=== PATIENT | female | born 1990 | race Caucasian/White ===

== ENCOUNTER → 2017-07-11 | Outpatient (CLI) | payer OTHER ==
[~2017-07-11] MED LIST: BCPILLS PO
== END | disposition home or self-care (01) ==
LOC: C.PAPS 13:25
PROVIDERS: ATTEND Obstetrics & Gynecology
DX: Z01.419 Encounter for gynecological examination (general) (routine) without abnormal findings (principal)

== ENCOUNTER 2018-01-30 08:38 | Emergency (ER) | payer OTHER ==
[~2018-01-30] VITALS: Ht 154.9 cm; Wt 48.7 kg
[2018-01-30 08:43] VITALS: TEMP 37; Ht 154.9 cm; Wt 48.7 kg
[2018-01-30] MEDS ORDERED: ESCI1TAB10 PO (09:01)
[2018-01-30] MEDS ORDERED: BUPR200T2 PO (09:01)
[2018-01-30] MEDS ORDERED: LIDOCAINE/EPINEPHRINE 1% 20 ML VIAL INFIL STA (09:01)
[2018-01-30] MEDS ORDERED: AMOXICILLIN/CLAVULANATE TAB 875 MG TAB PO STA (09:03)
--- NOTE | 2018-01-30 09:54 | DIAGNOSTIC IMAGING REPORT ---
R FOREARM 2 VIEWS ROUTINE CLINICAL HISTORY: right forearm pain, swelling, bitten by dog COMPARISON: None. DISCUSSION: No fractures or dislocations are visualized. There are no destructive lesions. No radiopaque foreign bodies are visualized. IMPRESSION: 1. No fractures identified 2. No radiopaque foreign bodies are visualized Electronically signed by: Gómez Donaldson M.D. 01/30/2018 9:52 AM Dictated Date/Time: 01/30/2018 9:52 AM
--- NOTE | 2018-01-30 10:05 | EMERGENCY ROOM VISIT NOTE ---
ED Visit Note First contact with patient: 08:50 CHIEF COMPLAINT: Right forearm laceration HISTORY OF PRESENT ILLNESS: This 27-year-old female patient presents to the emergency department, ambulatory, approximately 1 hour after getting bitten by a [place]. 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 She states the dog got scared and bit her in the right arm. She states he did twist the arm as well. The bleeding has not stopped. Denies weakness or numbness of the hand, forearm, or fingers. The patient rates the pain as sharp and 8/10. The patient denies any other injuries. The patient's Tetanus shot is up to date. REVIEW OF SYSTEMS: A 6 system review of systems was completed with positives and pertinent negatives listed in the HPI. ALLERGIES: None MEDICATIONS: Wellbutrin, Lexapro, OCPs PMH: None SOCIAL HISTORY: The patient lives locally with family. She denies drug, alcohol use. She admits to smoking one half pack of cigarettes per day. PHYSICAL EXAM: Vital Signs: Reviewed Nurse's notes, vital signs stable. GENERAL : This is a 27-year-old white female, in no acute distress, well-developed, well -nourished. SKIN: There is a 2 cm long laceration on the posterior aspect of the right forearm. The edges gape apart with traction. There is no foreign material in the wound and it looks clean. There is moderate bleeding. Moderate swelling in the distal to mid aspect of the forearm with significant tenderness on palpation. No deep structures such as tendons, bones, or significant blood vessels are seen in the base of the wound. Normal strength and movement of the elbow and wrist. Capillary refill less than 2 seconds. Normal sensation to light and sharp touch. RADIOLOGY: R FOREARM 2 VIEWS ROUTINE CLINICAL HISTORY: right forearm pain, swelling, bitten by dog COMPARISON: None. DISCUSSION: No fractures or dislocations are visualized. There are no destructive lesions. No radiopaque foreign bodies are visualized. IMPRESSION: 1. No fractures identified 2. No radiopaque foreign bodies are visualized Electronically signed by: Gómez Donaldson M.D. 01/30/2018 9:52 AM Dictated Date/Time: 01/30/2018 9:52 AM EMERGENCY DEPARTMENT COURSE: I examined the patient. X-ray performed and reviewed by myself and radiologist as above. Verbal consent was obtained to perform the procedure. Using sterile technique the wound was cleansed with Betadine. The area was sterilely draped. 4 ml of 1% lidocaine with epinephrine was used to anesthetize the laceration on the right forearm. Once the patient was anesthetized, the wound was copiously irrigated under pressure with sterile saline. The wound was explored and was as described above. The laceration was repaired using one subcuticular 5-0 Vicryl absorbable suture, and 6 simple interrupted 5-0 nylon sutures with the wound edges being well approximated. The patient tolerated the procedure well. Hemostasis was achieved. The area was cleaned with sterile saline and dressed with bacitracin ointment and bandage. The patient was given her first dose of Augmentin while here in the emergency department. The patient was discharged home in good condition. I attest that I have personally reviewed the patient's current medication list. Patient was found to have normal blood pressure on screening and does not require follow-up. DIAGNOSIS: right forearm laceration, dog bite Current/Historical Medications Scheduled Amoxicillin & Pot Clavulanate (Augmentin 875-125 mg), 1 TAB PO BID Control Pills ( Control Pills), 1 TAB PO DAILY Bupropion (Wellbutrin Sr), 200 MG PO DAILY Escitalopram Oxalate (Lexapro), 20 MG PO DAILY Allergies Coded Allergies: No Known Allergies (Unverified , 04/25/10) Vital Signs Date Time Temp Pulse Resp B/P (MAP) Pulse Ox O2 Delivery O2 Flow Rate FiO2 01/30/18 10:51 76 20 105/63 100 01/30/18 08:43 37.0 83 18 113/78 100 Room Air Medications Administered Medications (Trade) Dose Ordered Sig/Madison Route Start Time Stop Time Status Last Admin Dose Admin Lidocaine/ Epinephrine (Xylocaine/Epine 1% Inj) 20 ml NOW STAT INFIL 01/30/18 09:01 01/30/18 09:03 DC 01/30/18 09:51 20 ML Amoxicillin/ Clavulanate Potassium (Augmentin Tab) 875 mg ONE STAT PO 01/30/18 09:03 01/30/18 09:05 DC 01/30/18 09:51 875 MG Departure Information Impression Primary Impression: Dog bite Additional Impression: Laceration of forearm, right Dispostion Home / Self-Care Condition GOOD Prescriptions Amoxicillin & Pot Clavulanate (Augmentin 875-125 mg) 1 Tab Tab 1 TAB PO BID for 7 Days, #14 TAB Prov: Idalia Calix PA-C 01/30/18 Referrals Damaris Jones M.D. (PCP) Julio Cesar Hernandez D.O. Patient Instructions ED Bite Dog, ED Laceration Ext Sutr Stap Tape, [facility] Additional Instructions You have received 6 sutures on your right forearm. These sutures are NOT dissolvable and WILL need to be removed by a health care provider in 10-12 days. You can return to the Emergency Department or contact your Primary Care Provider to have the sutures removed. Proper wound care is essential for adequate wound healing and infection prevention. You can shower and clean the wound with soap and water. Do not scour over the wound, pat dry with a towel. Do not submerse the wound (i.e. bathe or dish wash) until the sutures have been removed. You can use an antibiotic ointment with a dressing over the wound for the next 3-4 days. After this time you may leave the wound dry and open to the air. If crust develops over the wound you can use a Q-tip to apply a 1:1 peroxide:water solution to clean the wound. You were prescribed Augmentin to be taken twice daily for 7 days. This is an antibiotic. All antibiotics have the potential to cause diarrhea. Stop this medication and contact a medical provider if you were to develop any significant adverse side effects including: wheezing, shortness of breath, passing out, vomiting, or a diffuse rash. Always take antibiotics as directed and COMPLETE the ENTIRE course regardless of the improvement of your symptoms. Look for signs of infection of the wound including: increased pain, swelling, foul discharge, streaking, or increased temperature. If any of these are noticed you should return to the Emergency Department for further assessment and treatment. As with any laceration you may have received nerve damage to the surrounding tissues. This damage may or may not be permanent. You should keep the area covered with sunscreen for the first 6 months to 1 year when at risk for exposure to help minimize scarring. You can also use scar reducing creams or Vitamin E oil to help minimize scarring. For pain control, you can use the following [id number] medicines (if >12 yo): Ibuprofen(Motrin, Advil) may be used for fever or pain. Use 600mg every six hours as needed. Take with food. Avoid using more than 2400mg in a 24 hour period. Do not use 2400mg per day for more than three consecutive days without physician direction. Prolonged inappropriate use can lead to stomach upset or ulcers. (AND/OR) Acetaminophen(Tylenol) may be used for fever or pain. Use 1000mg every six hours as needed. Avoid using more than 3000mg in a 24 hour period. Use the Edvin bandage to provide compression and support of the forearm and help with swelling. Use ice with a barrier device between the ice and your skin to help with swelling and bruising. Return to the emergency department if your symptoms worsen despite treatment course outlined above. Problem Qualifiers Primary Impression: Dog bite Encounter type: initial encounter Qualified Codes: W54.0XXA - Bitten by dog , initial encounter Additional Impression: Laceration of forearm, right Encounter type: initial encounter Qualified Codes: S51.811A - Laceration without foreign body of right forearm, initial encounter
[2018-01-30] MEDS ORDERED: AMOX875T PO (10:30)
[2018-01-30 10:51] VITALS: BP 105/63; PULSE 76; O2SAT 100
== END 2018-01-30 10:52 | disposition home or self-care (01) ==
LOC: C.EDB 08:38 → C.EDA 10:52
DX: S51.851A Open bite of right forearm, initial encounter (principal); W54.0XXA Bitten by dog, initial encounter; Y99.0 Civilian activity done for income or pay; Y92.89 Other specified places as the place of occurrence of the external cause